=== PATIENT | female | born 1995 | race African-American/Black ===

== ENCOUNTER 2016-12-06 19:36 | Emergency (ER) | payer OTHER ==
[~2016-12-06] VITALS: Ht 154.9 cm; Wt 53.2 kg
[~2016-12-06 19:36] MED LIST: NORCO 325 MG-7.1 TAB PO; PHENERGAN 25 TA25 MG PO; ULTRAM 50MG TAB50 MG PO; ZOFRAN8 MG PO
[2016-12-06 19:38] VITALS: TEMP 99.5
[2016-12-06 20:37] LABS: INFLUENZA B NEGATIVE
[2016-12-06] MEDS ORDERED: ZOFRAN ODT8 MG PO (21:48)
[2016-12-06 22:12] VITALS: BP 111/78; PULSE 70
== END 2016-12-06 22:12 | disposition home or self-care (01) ==
LOC: COL.ER 19:36
PROVIDERS: Emergency Medicine
DX: R11.2 Nausea with vomiting, unspecified (principal); R19.7 Diarrhea, unspecified
CPT/HCPCS: J2405